=== PATIENT | male | born 1960 | race Caucasian/White ===

== ENCOUNTER 2016-08-24 21:57 | Emergency (ER) | payer SELFPAY ==
[2016-08-24 22:14] VITALS: TEMP 98.8; BMI 21.7
[2016-08-25 00:14] VITALS: BP 128/75; PULSE 104
--- NOTE | 2016-08-25 00:44 | EDPRACDOC ---
- General Information Chief Complaint: Neck Pain Stated Complaint: NECK/LT ARM PAIN Time Seen by Provider: 08/25/16 00:25 Information Source: Patient Home Medications: Home Medications Cyclobenzaprine HCl [Flexeril] 10 mg PO TID #21 tab 08/25/16 Prednisone [Deltasone, Orasone] 2 tabs PO DAILY #20 tab 08/25/16 Allergies/Adverse Reactions: Allergies Allergy/AdvReac Type Severity Reaction Status Date / Time No Known Allergies Allergy Verified 08/24/16 22:14 - History of Present Illness Onset: 3 WEEKS HPI: PT PRESENTS TODAY WITH LEFT LATERAL NECK PAIN X 3 WEEKS. PT STATES THAT HE IS UNABLE TO TURN HIS HEAD AND PAIN RADIATES DOWN HIS LEFT ARM. NO APPARENT DISTRESS. DENIES FEVER, RASH, INJURY, HICKS. Pain Severity: Moderate Associated signs and symptoms: Reports: None ED Past Medical History - History Reviewed Yes Nurses notes reviewed and agree except as marked - Patient Medical History Psychological History: Denies: Depression - Social Medical History Smoking Status: Heavy tobacco smoker (5 or more cigarettes/day or daily pipe/ cigar) EDM Review of Systems - Review of Systems ROS Negative Except as Marked: Yes All systems reviewed and were negative except as marked Constitutional: No Symptoms Reported Respiratory: No Symptoms Reported Cardiovascular: No Symptoms Reported Gastrointestinal: No Symptoms Reported Neurological: No Symptoms Reported Musculoskeletal: Neck Integumentary: No Symptoms Reported - Physical Exam Constitutional: Alert (Awake), No apparent distress Oriented to: Time, Person, Place Last recorded Vital Signs: Last Vital Signs Temp 98.8 F 08/24/16 22:08 Pulse 104 08/25/16 00:11 Resp 21 08/25/16 00:11 BP 128/75 08/25/16 00:11 Pulse Ox 96 08/25/16 00:11 Oxygen Pulse Oxygen Saturation 96 O2 Device Room Air Oxygen Flow Rate Fraction of Inspired Oxygen ( FIO2) - HEENT Head: Normal Eye Exam: Normal Neck: Limited ROM, Midline, Paraspinal Tenderness - Respiratory/Cardiovascular Respiratory: Normal - CTA Cardiovascular: Normal - GI Palpation: Normal Tenderness: Non tender - Musculoskeletal Back: Normal Extremities: Normal - Integumentary Skin: Normal Lymphatics: Normal - Neurologic Mood Description: Normal Thought: Coherent Perception: Normal Decision Time to Discharge: 00:47 - Departure Disposition: Home Condition: Good Final Diagnosis: Torticollis Instructions: Spasmodic Torticollis (ED) Education/Counseling Given To: Patient Education/Counseling Given Regarding: Diagnosis, Treatment, Follow Up Referrals: None,No Provider [Primary Care Provider] - One Week RITESH,JACKELYN [NonStaff] - One Week Leonel Avila MD [Staff Physician] - One Week Prescriptions: Cyclobenzaprine HCl [Flexeril] 10 mg PO TID #21 tab Prednisone [Deltasone, Orasone] 2 tabs PO DAILY #20 tab Additional Instructions: HEATING PADS TO NECK TO HELP ALLEVIATE PAIN. MASSAGE AREA FOR ADDITIONAL RELIEF. IF SYMPTOMS PERSIST AFTER TODAYS TREATMENT, FOLLOW UP WITH PCP.
[2016-08-25] MEDS ORDERED: PREDNISONE 20 MG TAB PO ONE (00:48)
[2016-08-25] MEDS ORDERED: CYCLOBENZAPRINE 10 MG TAB PO ONE (00:48)
== END 2016-08-25 01:02 | disposition home or self-care (01) ==
LOC: ED 21:57
DX: M43.6 Torticollis (principal); F17.200 Nicotine dependence, unspecified, uncomplicated
CPT/HCPCS: 99283; J3490